=== PATIENT | female | born 1985 | race Caucasian/White ===

== ENCOUNTER 2020-10-15 14:36 | Outpatient (REF) | payer BC, SELFPAY ==
[2020-10-15 20:51] LABS: Calculated LDL 94 mg/dL (<100); Cholesterol 162 mg/dL (<200); HDL Cholesterol 60 mg/dL (40-60); Triglyceride 44 mg/dL (<150)
== END 2020-10-15 14:56 ==
LOC: NCHCN 14:36
DX: Z00.00 Encounter for general adult medical examination without abnormal findings (principal); Z13.220 Encounter for screening for lipoid disorders
CPT/HCPCS: 80061

== ENCOUNTER 2021-08-29 14:21 | Outpatient (REF) | payer BC, SELFPAY ==
--- NOTE | 2021-08-29 11:20 | PAPFT_PTH ---
PATIENT: Consuelo Arita LOC: [facility] U#:[id number] AGE/SX: 36/F ROOM: RE08/29/[address]: JASMINA Barry : 1985 BED: DIS: 08/29/2021 SPEC #: [id number] RECD: 08/29/21 17:44 STATUS: [id number] REQ #: [id number] TAI: 08/29/21 11:[address]: Valerie Limon DEPT: [facility] Cytology RECD BY: Betsy Hensley ENTERED: 08/29/21 17:45 SP TYPE: PAPFT OTHR DR: Ana Doll Tissues: 1 - CX/ENDOCX FOR PAP SMEARS Procedures: PAP THIN PREP/[facility] Screening HPV DNA PROBE Comments: [id number]
== END 2021-08-29 14:22 | disposition home or self-care (01) ==
LOC: LBN 14:21
PROVIDERS: PCP Family Medicine; Visit Provider Nurse Practitioner Family
DX: Z12.4 Encounter for screening for malignant neoplasm of cervix (principal); Z11.51 Encounter for screening for human papillomavirus (HPV)
CPT/HCPCS: 88142; 87624

== ENCOUNTER 2022-01-14 17:45 | Outpatient (REF) | payer BC, SELFPAY ==
[2022-01-14 18:04] LABS: HGB 14.6 g/dL (11.2-15.7); MCH 29.3 pg (27.0-33.0); MCHC 32.4 % (32.0-36.0); MCV 90.4 fL (80-95); MPV 11.3 fL (8.0-11.0); Platelet Count 195 10^3/uL (130-400); RBC 4.98 10^6/uL (3.93-5.22); RDW 12.9 % (11.7-14.6); WBC 7.21 10^3/uL (4.4-10.8)
[2022-01-14 18:05] LABS: Anion Gap 6.1 mmol/L (3-11); BUN 19 mg/dL (7-18); CO2 29.9 mmol/L (21.0-32.0); CREATININE 0.7 mg/dL (0.55-1.02); Calcium 9.2 mg/dL (8.5-10.1); Chloride 104 mmol/L (98-107); Glucose 89 mg/dL (74-106); Potassium 4.8 mmol/L (3.5-5.1); Sodium 140 mmol/L (136-145); TSH (W/Ref FT4) 2.01 uIU/mL (0.36-3.74)
== END 2022-01-14 17:46 | disposition home or self-care (01) ==
LOC: NCHCN 17:45
PROVIDERS: PCP Family Medicine; Visit Provider Nurse Practitioner Family
DX: Z00.00 Encounter for general adult medical examination without abnormal findings (principal); N95.1 Menopausal and female climacteric states
CPT/HCPCS: 80048; 85027; 84443

== ENCOUNTER → 2024-01-05 02:09 | Outpatient (CLI) | payer BC, SELFPAY ==
--- NOTE | 2024-01-05 07:00 | DI.RAD_ITS ---
Exam(s) XR FOOT RT COMPLETE EXAM: XR FOOT RT COMPLETE CLINICAL HISTORY: Right foot pain,M79.671. TECHNIQUE: 2D digital imaging was performed. COMPARISON: No exams were available for comparison FINDINGS: 3 views No evidence of fracture or diastasis of the Lisfranc joint. Bone density normal. No osseous lesions nor erosions. No pes planus. 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 The small accesso ry ossicle is also noted on the lateral aspect of the foot adjacent to the lateral aspect of the cubo id bone. There are no degenerative changes nor erosions evident. No inferior calcaneal spur. IMPRESSION: Findings as above but no acute osseous findings in the foot. DATA REPOSITORY: RADIATION DOSE DELIVERED:
== END ==
PROVIDERS: PCP Family Medicine; Visit Provider Podiatrist
DX: M79.671 Pain in right foot (principal)
CPT/HCPCS: 73630

== ENCOUNTER 2024-09-05 00:58 | Outpatient (CLI) | payer BC, SELFPAY ==
--- NOTE | 2024-09-05 | DI.RAD_ITS ---
Exam(s) XR CERVICAL SPINE COMP 4-5V EXAM: XR CERVICAL SPINE COMP 4-5V CLINICAL HISTORY: Cervical radiculopathy, M54.12. TECHNIQUE: 2D digital imaging was performed. Five views were performed. COMPARISON: No exams were available for comparison FINDINGS: BONES: No fracture or destructive lesion. Vertebral bodies are unremarkable. No visible neural fora samira narrowing. DISKS: Moderate to severe narrowing of the C5-6 disc space. Minimal endplate osteophytes. The remai jeanine intervertebral disc spaces are maintained. ALIGNMENT: Cervical spinal alignment is within normal limits. The odontoid and atlantoaxial articulat ions are normal. SOFT TISSUE: Normal. The lung apices are clear. IMPRESSION: Degenerative disc changes at C5-6. DATA REPOSITORY: RADIATION DOSE DELIVERED:
== END 2024-09-05 01:18 ==
LOC: DI 00:59
PROVIDERS: PCP Nurse Practitioner Family; Visit Provider Nurse Practitioner Family
DX: M54.12 Radiculopathy, cervical region (principal)
CPT/HCPCS: 72050

== ENCOUNTER 2024-10-05 02:49 | Outpatient (CLI) | payer BC, SELFPAY ==
--- NOTE | 2024-10-05 | DI.MRI_ITS ---
Exam(s) MR CERVICAL SPINE WO EXAM: MR CERVICAL SPINE WO CLINICAL HISTORY: Degeneration of cervical intervertebral disc at C5-C6 level, M50.322 TECHNIQUE: Multiplanar multisequence MRI of the cervical spine was performed without intravenous con trast. COMPARISON: CR XR CERVICAL SPINE COMP 4-5V from 09/05/2024 FINDINGS: BONES: Vertebral body heights are maintained. Intervertebral disc spaces are normal. Alignment is nor mal. Bone marrow signal intensity is within normal limits. CERVICAL CORD: Craniovertebral junction is unremarkable. The cervical cord is normal size and signal intensity. SOFT TISSUES: Unremarkable. C2-3: No disc herniation or bulge is identified. No significant central spinal canal or neural forami nal stenosis. C3-4: No disc herniation or bulge is identified. No significant central spinal canal or neural forami nal stenosis C4-5: No disc herniation or bulge is identified. No significant central spinal canal or neural forami nal stenosis C5-6: At C5-C6 there is a mild diffuse disc bulge. It does efface the anterior subarachnoid space im pinge upon the anterior aspect of the spinal cord. The AP diameter of the spinal canal is 8 mm michelle red to 10 mm at the levels above and below. No significant neural foraminal stenosis is seen. C6-7: No disc herniation or bulge is identified. No significant central spinal canal or neural forami nal stenosis C7-T1: No disc herniation or bulge is identified. No significant central spinal canal or neural aneta inal stenosis IMPRESSION: 1. There is a mild diffuse disc bulge at C5-C6. There is mild narrowing of the central spinal canal. There is normal signal in the spinal cord. No neural foraminal stenosis results. 2. The remaining disc levels are unremarkable. DATA REPOSITORY:
== END 2024-10-05 03:09 ==
LOC: DI 02:49
PROVIDERS: PCP Nurse Practitioner Family; Visit Provider Nurse Practitioner Family
DX: M50.022 Cervical disc disorder at C5-C6 level with myelopathy (principal)
CPT/HCPCS: 72141

== ENCOUNTER 2025-01-17 16:45 | Outpatient (REF) | payer BC, SELFPAY ==
[2025-01-17 21:02] LABS: HCT 39.8 % (36.0-46.0); MCH 28.8 pg (27.0-33.0); MCHC 32.7 % (32.0-36.0); MCV 88 fL (80-95); MPV 11.3 fL (8.0-11.0); Platelet Count 186 10^3/uL (130-400); RBC 4.51 10^6/uL (3.93-5.22); RDW 13.8 % (11.7-14.6); RDW-SD 44.6 fL; WBC 5.83 10^3/uL (4.4-10.8)
[2025-01-17 21:12] LABS: ALT 17 U/L (14-59); AST 17 U/L (15-37); Albumin 4.1 g/dL (3.4-5.0); Alkaline Phosphatase 55 U/L (46-116); Anion Gap 6.2 mmol/L (3-11); BUN 24 mg/dL (7-18); Bilirubin, Total 0.3 mg/dL (0.2-1.0); CO2 28.8 mmol/L (21.0-32.0); CREATININE 0.6 mg/dL (0.55-1.02); Calcium 9.4 mg/dL (8.5-10.1); Calculated LDL 85 mg/dL (<100); Chloride 106 mmol/L (98-107); Cholesterol 157 mg/dL (<200); Estimated GFR 115.57 (mL/min/1.73m2); Glucose 90 mg/dL (74-106); HDL Cholesterol 65 mg/dL (>or=50); Potassium 4.5 mmol/L (3.5-5.1); Sodium 141 mmol/L (136-145); Total Protein 7.4 g/dL (6.4-8.2); Triglyceride 37 mg/dL (<150)
== END 2025-01-17 16:46 | disposition home or self-care (01) ==
LOC: NCHCN 16:45
PROVIDERS: PCP Nurse Practitioner Family; Visit Provider Nurse Practitioner Family
DX: Z00.00 Encounter for general adult medical examination without abnormal findings (principal)
CPT/HCPCS: 80053; 80061; 85027

== ENCOUNTER 2025-01-27 00:21 | Outpatient (CLI) | payer BC, SELFPAY ==
--- NOTE | 2025-01-27 | DI.MAMMO_ITS ---
Exam(s) MAMMO SCREENING EXAM: MAMMO SCREENING CLINICAL HISTORY: Z12.39 Screening TECHNIQUE: Mammograms were interpreted according to the usual protocol including computer analysis w [employer] CAD system, tomosynthesis and C-view imaging. COMPARISON: No exams were available for comparison. Baseline examination. FINDINGS: The breasts are composed of scattered fibroglandular densities, Breast Density category B. No suspicious masses or suspicious microcalcifications are seen. No skin thickening or abnormal axillary lymph nodes are seen. IMPRESSION: BI-RADS Category 1, Negative mammogram Yearly screening mammography is recommended. Breast Density - Category B, scattered fibroglandular densities. A negative radiographic report should not delay biopsy if a dominant or clinically suspicious mass is present. Up to ten percent of cancers are not identified on mammography. A negative report may reinforce clinical impression. Adenosis and dense breasts may obscure an underlying neoplasm. False positive reports average 6 to 10%. Patient will receive a letter notifying them of these results.
== END 2025-01-27 00:41 ==
LOC: DI 00:21
PROVIDERS: PCP Nurse Practitioner Family; Visit Provider Nurse Practitioner Family
DX: Z12.31 Encounter for screening mammogram for malignant neoplasm of breast (principal); R92.323 Mammographic fibroglandular density, bilateral breasts
CPT/HCPCS: 77063; 77067